=== PATIENT | female | born 1970 | race African-American/Black ===

== ENCOUNTER 2021-06-12 20:12 | Observation (INO) | payer OTHER ==
[~2021-06-12] VITALS: Ht 162.6 cm; Wt 105.7 kg
[2021-06-12 20:20] VITALS: BP 147/99
[2021-06-12 20:38] LABS: URINE BILIRUBIN NEGATIVE (Negative); URINE BLOOD TRACE (Negative); URINE CLARITY CLEAR; URINE COLOR YELLOW; URINE GLUCOSE-RANDOM NEGATIVE (Negative); URINE LEUKOCYTES-REFLEX NEGATIVE (Negative); URINE NITRITE-REFLEX NEGATIVE (Negative); URINE PROTEIN NEGATIVE (Negative); URINE UROBILINOGEN 0.2 E.U./dl (0.2-1.0)
[2021-06-12 20:40] LABS: URINE KETONES 3+ (Negative)
[2021-06-12 20:41] LABS: ABSOLUTE LYMPHOCYTES 1.6 thou/uL (0.8-5.3); ABSOLUTE MONOCYTES 0.4 thou/uL (0.0-1.2); ABSOLUTE NEUTROPHILS 3.2 thou/uL (1.6-8.1); BASOPHILS 0.5 %; EOSINOPHILS 0.7 %; HEMATOCRIT 42.7 % (37.0-47.0); HEMOGLOBIN 14.2 gm/dL (12.0-15.0); LYMPHOCYTES 30.4 %; MCH 28.2 pg (26.0-34.0); MCHC 33.3 g/dL (28.0-37.0); MCV 84.9 fL (80.0-100.0); MONOCYTES 7.8 %; MPV 7.7 fl. (7.2-11.1); NUCLEATED RBCS 0 /100WBC; PLATELET COUNT* 343 thou/uL (150-400); POLYS 60.6 %; RBC 5.03 mil/uL (4.20-5.00); RDW-CV 14.3 % (10.5-14.5); WBC 5.3 thou/uL (4.0-11.0)
[2021-06-12 20:50] LABS: CALCIUM 9.3 mg/dL (8.5-10.1); POTASSIUM 3.3 mmol/L (3.5-5.1)
[2021-06-12 21:00] LABS: ALBUMIN 4.2 g/dL (3.4-5.0); MAGNESIUM 2.3 mg/dL (1.8-2.4); TOTAL BILIRUBIN 0.3 mg/dL (<0.1-1.0); TOTAL PROTEIN 8.3 g/dL (6.4-8.2)
[2021-06-12 22:56] VITALS: BP 140/83
[2021-06-13] VITALS (8 sets, daily range): BP systolic 114–140; BP diastolic 62–83
[2021-06-13] MEDS ORDERED: CETIRIZINE HCL5 MG PO ×2 (02:05)
--- NOTE | 2021-06-13 09:29 | EKG ---
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: [place] : [id number] Requested By: Bessie Cedillo Order Number: [id number] MD: Corbin Lind Measurements Intervals [place] Rate: 103 P: 45 ND: 143 QRS: 17 QRSD: 109 T: -24 QT: 351 QTc: 460 Interpretive Statements Sinus tachycardia Probable left atrial enlargement Left ventricular hypertrophy Anterior infarct, old suggested Borderline T abnormalities, inferior leads No previous ECG available for comparison Electronically Signed On 06-13-2021 9:29:07 [employer] by Corbin Lind [email or web address] <ELECTRONICALLY SIGNED> By: Corbin Lind MD, FACC 06/13/21 0929 17 17 Corbin Lind MD, [facility] /EPI
--- NOTE | 2021-06-13 15:03 | EXE ---
[place] [address] STRESS ECHOCARDIOGRAM Name: CHRISTIANA COATS Room: [address] [place]son#: [id number] Admission: 06/12/21 Attend Phys: Darrian Mac Discharge: Date of : 68 Date of Service: 06/13/21 1503 Report #: [id number] THIS REPORT FOR: cc: FAM - No family physician/PCP FAM - No family physician/PCP Corbin Lind MD [facility] ~ APPROVED REPORT Study performed: 06/13/2021 09:37:42 Exam: Stress Echocardiogram Indication: Chest pain Patient Location: In-Patient Stress Nurse: Yolie Lisa RN Room #: [id number] Supervising Physician: Corbin Lind MD Status: routine Ht: 5 ft 4 in HR: 70 bpm BP: 128/74 mmHg Rhythm: NSR Medical History Cardiac Risk Factors: FHX of CAD Procedure The patient underwent an Exercise Stress Test using the Cali Protocol. Blood pressure, heart rate, and EKG were monitored. An Echocardiogram was performed by vacuum technician in four stages in quad fashion. At peak stress, four selected images were obtained and placed side by side with resting images for comparison. Stress Test Details Stress Test: Exercise stress testing was performed using a Cali protocol. HR Resting HR: 70 bpm Max Heart Rate (APMHR): 169 bpm Max HR Achieved: 152 bpm Target HR (85% APMHR): 143 bpm % of APMHR: 89 Recovery HR: 99 bpm HR response to stress: Normal HR response to stress BP Resting BP: 128/74 [place] [address] STRESS ECHOCARDIOGRAM Name: CHRISTIANA COATS Room: [address] [place]#: [id number] Admission: 06/12/21 Attend Phys: Darrian Mac Discharge: Date of : 68 Date of Service: 06/13/21 1503 Report #: [id number] Max BP: 193/81 mmHg Recovery BP: 124/70 mmHg BP response to stress: Normal blood pressure response to stress. ECG Resting ECG: Sinus rhythm leftward QRS axis delayed R wave progression over the right precordial Stress ECG: Minor nonspecific ST-T changes; no ischemic changes were noted Arrhythmia: No arrhythmias noted Recovery ECG: Minor nonspecific ST-T alterations noted; no ischemic changes noted Recovery Arrhythmia: No arrhythmias noted Clinical Reason for Termination: fatigue4 Exercise duration: 4 min 33 sec Highest Stage Achieved: Stage 2: 2.5 mph at 12% grade. Exercise capacity: 6.5 METs Pre-Stress Echo The resting Echocardiogram showed normal left ventricular contractility with an estimated Ejection Fraction of about 60-65%. Trace mitral and trace tricuspid regurgitation. Normal wall motion in all segments on baseline images. Post-Stress Echo The stress Echocardiogram showed normal left ventricular contractility with an estimated Ejection Fraction of about >70%. Normal augmentation of wall motion in all segments on post stress images. Conclusion Clinical Response: Non-ischemic Exercise Capacity: Below Average Stress ECG Response: Non-ischemic Stress Echo Images: Non-ischemic Other Information Study Quality: Good <ELECTRONICALLY SIGNED> By: Corbin Lind MD, [facility] 06/13/21 1503 1503 1503 Corbin Lind MD, FACC /INF
== END 2021-06-13 16:50 | disposition home or self-care (01) ==
LOC: M.ERS 20:12 → M.TBA-ER 22:52 → M.2W 22:52
PROVIDERS: Emergency Medicine; ADMIT Internal Medicine; ATTEND Internal Medicine
DX: R07.89 Other chest pain (principal); R03.0 Elevated blood-pressure reading, without diagnosis of hypertension; R42 Dizziness and giddiness; R06.02 Shortness of breath; E87.6 Hypokalemia; E66.09 Other obesity due to excess calories; Z20.822 Contact with and (suspected) exposure to COVID-19; Z79.899 Other long term (current) drug therapy

== ENCOUNTER 2021-06-16 16:03 | Emergency (ER) | payer OTHER ==
[~2021-06-16] VITALS: Ht 160 cm; Wt 99.8 kg
[~2021-06-16 16:03] MED LIST: CETIRIZINE HCL5 MG PO
[2021-06-16 16:16] VITALS: BP 131/79
== END 2021-06-16 16:17 | disposition left against medical advice (07) ==
LOC: M.ERS 16:03
DX: R42 Dizziness and giddiness (principal); Z53.21 Procedure and treatment not carried out due to patient leaving prior to being seen by health care provider